=== PATIENT | male | born 1990 | race African-American/Black ===

== ENCOUNTER → 2017-12-04 11:57 | Emergency (ER) | payer BC, MEDICAID ==
[~2017-12-04 11:57] MED LIST: Albuterol 2.5 MG/3 ML NEB.SOL* (0.083%) INH ONE
--- NOTE | 2017-12-04 12:06 | UC ---
Respiratory Complaint HPI - HPI Summary HPI Summary: 26 y/o male presents to the urgent care c/o cold symptoms, chest congestion w/ productive cough, CARROLL, nasal congestion w/ yellowish nasal discharge, sore throat since last 11/30/2017. Pt states chill w/ subjective low grade fever at night time. Pt has been taking Mucinex PO and Tylenol sinus OTC to alleviate symptoms. CARROLL is 4/10. Pt denies SOB, wheezing, chest pain, abdominal pain, N/V/D. - History of Current Complaint Stated Complaint: HEAD COLD, CONGESTED Time Seen by Provider: 12/04/17 12:03 Hx Obtained From: Patient Onset/Duration: Gradual Onset Timing: Constant Severity Initially: Mild Severity Currently: Moderate Pain Intensity: 4 - Headache Pain Scale Used: 0-10 Numeric Character: Cough: Productive, Sputum Description: - yeelowish Aggravating Factors: Recumbent Position Alleviating Factors: OTC Meds Associated Signs And Symptoms: Positive: Chills, Nasal Congestion, Sinus Discomfort - Risk Factors Pulmonary Embolism Risk Factors: Negative Cardiac Risk Factors: Negative Pseudomonas Risk Factors: Negative Tuberculosis Risk Factors: Negative - Allergies/Home Medications Allergies/Adverse Reactions: Allergies Allergy/AdvReac Type Severity Reaction Status Date / Time anesthesia Allergy Unknown Hives Uncoded 12/04/17 12:10 PMH/Surg Hx/FS Hx/Imm Hx Previously Healthy: Yes Respiratory History: Asthma - Family History Known Family History: Positive: Diabetes Family History: Lung cancer - Social History Occupation: Employed Full-time Lives: With Family Review of Systems Constitutional: Fever - low grade subjective at home, Chills, Other - body aches Skin: Negative Eyes: Negative ENT: Sore Throat, Nasal Discharge, Sinus Congestion, Sinus Pain/Tenderness Respiratory: Cough Cardiovascular: Negative Gastrointestinal: Negative Genitourinary: Negative Motor: Negative Neurovascular: Negative Musculoskeletal: Negative Neurological: Headache Psychological: Negative Is Patient Immunocompromised?: No All Other Systems Reviewed And Are Negative: Yes Physical Exam - Summary Physical Exam Summary: Vital Signs Reviewed: Yes General: well developed, well nourished male sitting in the examining table w/o any apparent distress Eyes: Positive: Conjunctiva Clear - PERRLA, EOMI, fundi grossly normal ENT: Positive: Normal ENT inspection, Hearing grossly normal, Pharynx mild erythema, no exudate, Nasal congestion - edematous and erythematous nasal mucosa , Nasal drainage - yellowish drainage, TMs normal. Negative: Tonsillar swelling , Tonsillar exudate Neck: Positive: Supple, Nontender, No Lymphadenopathy Respiratory: no orthopnea or dyspnea. Able to speak in full sentences, no retractions or accessory muscle use, no tripod position, stridor, or head bobbing. Positive breast sounds bilaterraly,Scattered rhonchi posterior lungs, no crackles or wheezing, no rales. Cardiovascular: Positive: RRR, No Murmur, Pulses Normal, Brisk Capillary Refill Abdomen Description: Positive: Nontender, No Organomegaly, Soft. Negative: CVA Tenderness (R), CVA Tenderness (L) Bowel Sounds: Positive: Present Musculoskeletal Exam: Normal Musculoskeletal: Positive: Strength Intact, ROM Intact, No Edema Neurological Exam: Normal Psychological Exam: Normal Skin Exam: Normal Triage Information Reviewed: Yes Respiratory Course/Dx - Course Course Of Treatment: 26 y/o male presents to the urgent care c/o cold symptoms, chest congestion w/ productive cough, CARROLL, nasal congestion w/ yellowish nasal discharge, sore throat since last 11/30/2017. Pt states chill w/ subjective low grade fever at night time. Pt has been taking Mucinex Po and tylenol sinus OTC to alleviate symptoms. CARROLL is 4/10. Pt denies SOB, wheezing, chest pain, abdominal pain, N/V/D. Hx obtained. Pt w/ B/L posterior lungs w/ scattered rhonchi on examination. O2Sat: 100%. Pt w/ PMHX of asthma that has been controlled for many years. Rapid influenza A&B ordered:negative. Chest X- ray ordered to r/o pneumonia. Impression: No active cardiopulmonary disease observed. Pt given an albuterol treatment at the clinic. Pt tolerated well treatment and chest congestion improved and Pt fell better. Pt Rx Z-vasu, Prednisone PO taper dose, Albuterol inhaler to alleviate symptoms. Pt was instructed to return to the [facility] care or his PCP if not improvement of symptoms. All questions were answered at patient satisfaction. Pt's BP is elevated today advised to decrease salt in diet, monitor BP and f/u with PCP for further management. There were no further complaints or concerns. Pt left the clinic hemodynamically stable, A&OX3 - Differential Dx/Diagnosis Differential Diagnosis/HQI/PQRI: Asthma, Bronchitis, Influenza, Lower Resp Infection, Sinusitis, Other - URI, pharyngitis, pneumonia Provider Diagnoses: 1- Acute asthma exacerbation due to bronchitis. 2-Elevated BP w/o HX of HTN Discharge - Sign-Out/Discharge Documenting (check all that apply): Discharge - Discharge Plan Condition: Stable Disposition: HOME Prescriptions: Albuterol HFA INHALER* [Ventolin HFA Inhaler*] 1 - 2 puff INH Q4H PRN #1 mdi PRN Reason: bronchospam Azithromyxin VASU (NF) [Z-Vasu (Zithromax) 250 mg tabs #6] 2 tab PO .TODAY, THEN 1 DAILY #6 tab predniSONE TAB* [Deltasone TAB*] 20 mg PO DAILY #11 tab Patient Education Materials: Asthma (ED), Acute Bronchitis (ED), Low-Sodium Diet (ED) Forms: *Work Release Referrals: Osito Talbot MD [Medical Doctor] - 3 Days Additional Instructions: 1-Please take full course of antibiotic to avoid resistance. Take the Prednisone PO as directed 2- Use the albuterol inhaler to alleviate cough. Increase fluid intake, rest and eat well. 3- If symptoms do not improve or worsen or your develop SOB with fever and severe wheezing please go immediately to the ER further evaluation and treatment. 4- F/u with your PCP in 3 days for further management on your Asthma 5-Your BP is elevated today. please decrease salt in your diet, monitor BP and if it continues to be elevated please f/u with your PCP for further management - Billing Disposition and Condition Condition: STABLE Disposition: HOME
[2017-12-04 12:18] VITALS: BP 140/86
--- NOTE | 2017-12-04 13:32 | RAD ---
INDICATION: Productive cough and fever. COMPARISON: There are no prior studies available for comparison. TECHNIQUE: Dual-energy PA and lateral views of the chest were obtained. FINDINGS: The heart is within normal limits in size. Mediastinal and hilar contours appear within normal limits. The lungs are clear. No pleural effusion is present. IMPRESSION: NO EVIDENCE FOR ACTIVE CARDIOPULMONARY DISEASE.
== END | disposition home or self-care (01) ==
LOC: EDBD 11:57 → UCEAST 11:57
DX: J45.901 Unspecified asthma with (acute) exacerbation (principal); R03.0 Elevated blood-pressure reading, without diagnosis of hypertension; Z88.4 Allergy status to anesthetic agent
CPT/HCPCS: 71046; 87502; 99202; G0463

== ENCOUNTER 2018-01-01 07:40 | Emergency (ER) | payer BC ==
[2018-01-01 07:56] VITALS: BP 130/58
[2018-01-01] MEDS ORDERED: Ketorolac INJ* 60 MG/2 ML VIAL IM ONE (08:03)
--- NOTE | 2018-01-03 20:56 | UC ---
Shahriar Garcia Angela, scribed for Carlos Wharton MD on 01/01/18 at 0800 . Neck Pain HPI - HPI Summary HPI Summary: This pt is a 27 y/o male presenting to [facility] c/o right sided neck pain x3 days. Pt reports his pain began after he slept wrong on his right shoulder 3 days ago. He notes that since then he has been having pain on the right side of his neck. He denies any other complaints. Denies fever, chills, headache, weakness, numbness. Denies any PMHx. - History of Current Complaint Chief Complaint: UCUpperExtremity Stated Complaint: NECK PAIN Time Seen by Provider: 01/01/18 07:47 Hx Obtained From: Patient Onset/Duration Of Injury/Symptoms: Days Mechanism Of Injury: No Known Trauma Onset/Duration: Lasting Days, Still Present Severity: Moderate Pain Intensity: 4 Pain Scale Used: 0-10 Numeric Location: Discrete At: - right side of neck Aggravating Factors: Nothing Alleviating Factors: Nothing Associated Signs & Symptoms: Negative: Swelling, Redness, Bruising, Fever, Nuchal Rigity, Weakness, Headache, Paresthesia - Allergies/Home Medications Allergies/Adverse Reactions: Allergies Allergy/AdvReac Type Severity Reaction Status Date / Time anesthesia Allergy Unknown Hives Uncoded 01/01/18 07:56 PMH/Surg Hx/FS Hx/Imm Hx Other Endocrine History: DENIES: diabetes Other Cardiovascular History: DENIES: HTN Respiratory History: Asthma - Surgical History Surgical History: Yes Surgery Procedure, Year, and Place: Bariatric surgery 2008 - Family History Known Family History: Positive: Diabetes Family History: Lung cancer - Social History Alcohol Use: Occasionally Substance Use Type: Marijuana Substance Use Comment - Amount & Last Used: weekly Smoking Status (MU): Never Smoked Tobacco Review Of Systems Constitutional: Positive: Negative Skin: Positive: Negative Eyes: Positive: Negative ENT: Positive: Negative Respiratory: Positive: Negative Cardiovascular: Positive: Negative Gastrointestinal: Positive: Negative Genitourinary: Positive: Negative Musculoskeletal: Positive: Other: - right sided neck pain Neurological: Positive: Negative Psychological: Positive: Negative All Other Systems Reviewed And Are Negative: Yes Physical Exam - Summary Physical Exam Summary: VITAL SIGNS: Reviewed. GENERAL: Patient is a well-developed and nourished male who is lying comfortable in the stretcher. Patient is not in any acute respiratory distress. HEAD AND FACE: Normocephalic EYES: PERRLA, EOMI x 2. EARS: Hearing grossly intact. MOUTH: Oropharynx within normal limits. NECK: Supple, trachea is midline, no adenopathy, no JVD, no carotid bruit. Tenderness in the right sternocleidomastoid muscle. No vertebral tenderness. CHEST: Symmetric, no tenderness at palpation LUNGS: Clear to auscultation bilaterally. No wheezing or crackles. CVS: Regular rate and rhythm, S1 and S2 present, no murmurs or gallops appreciated. ABDOMEN: Soft, non-tender. Bowel sounds are normal. No abdominal abnormal pulsations. EXTREMITIES: Full ROM in all major joints, no edema, no cyanosis or clubbing. NEURO: Alert and oriented x 3. No acute neurological deficits. Speech is normal and follows commands. SKIN: Dry and warm Triage Information Reviewed: Yes Vital Signs: Initial Vital Signs Temp 98.1 F 01/01/18 07:51 Pulse 80 01/01/18 07:51 Resp 18 01/01/18 07:51 BP 130/58 01/01/18 07:51 Pulse Ox 100 01/01/18 07:51 Vital Signs Reviewed: Yes Neck Pain Course/Dx - Course Course Of Treatment: This pt is a 27 y/o male presenting to [facility] c/o right sided neck pain x3 days. Pt reports his pain began after he slept wrong on his right shoulder 3 days ago. He notes that since then he has been having pain on the right side of his neck. He denies any other complaints. Denies fever, chills. Denies any PMHx. Pt will be given a Toradol injection. I believe the pt has torticollis. Therefore he will be discharged home with follow up from his PCP. He will be given prescriptions for Motrin and Robaxin. Pt was instructed to return to the urgent care or go to ER immediately if any of the symptoms return or worsens. Plan of care was discussed with the patient and pt understands and agrees. All questions were answered to patient satisfaction. There were no further complaints or concerns. Pt is hemodynamically stable, alert and oriented x3. The patient was found to have increased blood pressure in UC. The patient will follow up with PCP for better control of BP. - Differential Dx/Diagnosis Provider Diagnoses: Torticollis Discharge - Sign-Out/Discharge Documenting (check all that apply): Discharge/Admit/Transfer - Discharge - Discharge Plan Condition: Stable Disposition: HOME Prescriptions: Ibuprofen TAB* [Motrin TAB* 600 MG] 600 mg PO Q8H PRN #30 tab PRN Reason: Pain Methocarbamol TAB* [Robaxin 500 MG TAB*] 500 mg PO TID PRN #9 tab PRN Reason: Pain Patient Education Materials: Spasmodic Torticollis (ED) Forms: *Work Release Referrals: Carlos Trotter MD [Primary Care Provider] - Additional Instructions: FOLLOW UP WITH YOUR PRIMARY CARE PROVIDER WITHIN ONE WEEK FOR HIGH BLOOD PRESSURE NOTED TODAY. RETURN TO URGENT CARE OR THE ED FOR ANY WORSENING OR NEW SYMPTOMS. The documentation as recorded by the Shahriar oviedo Angela accurately reflects the service I personally performed and the decisions made by , Carlos Wharton MD.
== END 2018-01-01 08:21 | disposition home or self-care (01) ==
LOC: UCEAST 07:40
DX: M43.6 Torticollis (principal); Z88.4 Allergy status to anesthetic agent
CPT/HCPCS: 96372; 99212; G0463; J1885

== ENCOUNTER 2019-06-12 15:18 | Emergency (ER) | payer BC ==
--- NOTE | 2019-06-12 16:47 | ED ---
Throat Pain/Nasal Congestion - HPI Summary HPI Summary: Pt is a 29 y/o M presenting to the ED with a chief complaint of ENT issues. He states he has had R ear fullness over the past 3-4 weeks that has worsened over the past few days. Hx perforated TM in past. He has had an accompanying headache that originates in his R sikh and radiates toward the occipital portion of his head. Over the last few days, he reports yellow/green discharge from his R ear as well as from his nose, with some blood. He also notes paresthesia on the palmar aspect of his L digits, and occasionally his L leg or R leg. No weakness. No neck or back pain. He denies fever. - History of Current Complaint Chief Complaint: EDNeurologicalDeficit Time Seen by Provider: 06/12/19 16:08 Hx Obtained From: Patient Onset/Duration: Gradual Onset, Lasting Weeks, Still Present Severity: Moderate Associated Signs And Symptoms: Positive: Nasal Discharge Cough: None - Allergies/Home Medications Allergies/Adverse Reactions: Allergies Allergy/AdvReac Type Severity Reaction Status Date / Time anesthesia Allergy Unknown Hives Uncoded 06/12/19 15:55 PMH/Surg Hx/FS Hx/Imm Hx Previously Healthy: Yes Endocrine/Hematology History: Denies: Hx Diabetes, Hx Thyroid Disease Cardiovascular History: Denies: Hx Hypertension Respiratory History: Reports: Hx Asthma Denies: Hx Chronic Obstructive Pulmonary Disease (COPD) GI History: Denies: Hx Ulcer - Surgical History Surgery Procedure, Year, and Place: Bariatric surgery 2008 Infectious Disease History: No Infectious Disease History: Denies: Hx Hepatitis, Hx Human Immunodeficiency Virus (HIV), Traveled Outside the [place] in Last 30 Days - Family History Known Family History: Positive: Diabetes Family History: Lung cancer - Social History Alcohol Use: Occasionally Hx Substance Use: Yes Substance Use Type: Reports: Marijuana Substance Use Comment - Amount & Last Used: weekly Hx Tobacco Use: No Smoking Status (MU): Never Smoked Tobacco Review of Systems Negative: Fever Positive: Ear Ache, Nasal Discharge Positive: Headache, Paresthesia All Other Systems Reviewed And Are Negative: Yes Physical Exam - Summary Physical Exam Summary: Constitutional: Well-developed, Well-nourished, Alert. (-) Distressed Skin: Warm, Dry HENT: Normocephalic; Atraumatic. Perforated TM of R ear Eyes: Conjunctiva normal Neck: Musculoskeletal ROM normal neck. (-) JVD, (-) Nuchal rigidity Cardio: Rhythm regular, rate normal, Heart sounds normal; Intact distal pulses; Radial pulses are 2+ and symmetric. (-) Murmur Pulmonary/Chest wall: Effort normal. (-) Respiratory distress, (-) Wheezes, (-) Rales Abd: Soft. (-) Tenderness, (-) Distension, (-) Guarding, (-) Rebound Musculoskeletal: (-) Edema Lymph: (-) Cervical adenopathy Neuro: Alert, PERRL, Oriented x3, Strength normal, Cranial nerves II-XII are grossly intact. Strength 5/5 BUE and BLE, (-) Nystagmus, ambulates w steady gait. Decreased sensation to palmar aspect of 3rd and 4th digits on L hand as well as posterior L calf. Psych: Mood and affect Normal Triage Information Reviewed: Yes Vital Signs On Initial Exam: Initial Vitals Temp Pulse Resp BP Pulse Ox 97.8 F 75 16 142/75 100 06/12/19 15:20 06/12/19 15:20 06/12/19 15:20 06/12/19 15:20 06/12/19 15:20 Vital Signs Reviewed: Yes - Janette Coma Scale Best Eye Response: 4 - Spontaneous Best Motor Response: 6 - Obeys Commands Best Verbal Response: 5 - Oriented Coma Scale Total: 15 Procedures - Sedation Patient Received Moderate/Deep Sedation with Procedure: No Diagnostics - Vital Signs Vital Signs Temp Pulse Resp BP Pulse Ox 06/12/19 15:20 97.8 F 75 16 142/75 100 - Laboratory Lab Statement: Any lab studies that have been ordered have been reviewed, and results considered in the medical decision making process. - CT Brain CT CT Interpretation Completed By: Radiologist Summary of CT Findings: Normal CT of the brain. ED physician has reviewed this report. Re-Evaluation - Re-Evaluation First Eval Re-Evaluation Time: 18:00 Change: Improved - Patient feels better, head CT negative. Patient will follow up when PRN with neurology. EENT Course/Dx - Course Course Of Treatment: 29-year-old male history of recurrent otitis media presents with right ear pain and drainage, headaches, and procedures. Physical exam of the right TM perforation, will give amoxicillin. Regarding headache, patient denies history of present headaches, has had a persistent headache for 2 weeks possibly associated paresthesias. Did have congestion but no fevers or nuchal rigidity. We'll check a head CT. Patient can have further workup for paresthesias with neurology. - Diagnoses Provider Diagnoses: Headache, Perforated tympanic membrane, Paresthesia Discharge ED - Sign-Out/Discharge Documenting (check all that apply): Patient Departure - Discharge Plan Condition: Stable Disposition: HOME Prescriptions: Amoxicillin 875 mg PO BID 7 Days #14 tablet Patient Education Materials: Ear Infection (ED), Acute Headache (ED), Paresthesia (ED), General Headache (ED) Referrals: Carlos Trotter MD [Primary Care Provider] - Mainor Wiley MD [Medical Doctor] - Additional Instructions: You were seen in the emergency department for ear pain, headache and numbness and tingling. Your head CT is normal. Please take amoxicillin and antibiotic twice a day for 7 days. Please follow up with neurology regarding your paresthesias. If any studies were not completed at the time of discharge you will be called with the relevant results. Please follow up with your primary care doctor in next 2-3 days and return to emergency department for worsening or concerning symptoms. It was a pleasure taking care of you today. - Billing Disposition and Condition Condition: STABLE Disposition: Home - Attestation Statements Document Initiated by Cheyanne: Yes Documenting Scribe: Cristal Murphy Provider For Whom Cheyanne is Documenting (Include Credential): Leda Srivastava MD. Scribe Attestation: Cristal Garcia, scribed for Leda Srivastava MD. on 06/12/19 at 1811. Scribe Documentation Reviewed: Yes Provider Attestation: The documentation as recorded by the amintaibeCristal accurately reflects the service I personally performed and the decisions made by , Leda Srivastava MD. Status of Scribe Document: Viewed
[2019-06-12] MEDS: NS 0.9% 1000 ML** 1,000 ML IV ONE (17:05)
[2019-06-12] MEDS: Amoxicillin PO (*) 500 MG CAP PO ONE (17:12)
[2019-06-12] MEDS: Metoclopramide IV* 5 MG/ML 2 ML VIAL IV SLOW PU ONE (17:12)
[2019-06-12] MEDS: Ketorolac INJ* 30 MG/ML 1 ML VIAL IV ONE (17:12)
[2019-06-12 18:20] VITALS: BP 132/78
== END 2019-06-12 18:13 | disposition home or self-care (01) ==
LOC: ED 15:18
DX: H72.91 Unspecified perforation of tympanic membrane, right ear (principal); R51 Headache; R20.2 Paresthesia of skin; J45.909 Unspecified asthma, uncomplicated; Z88.4 Allergy status to anesthetic agent
CPT/HCPCS: 70450; 96361; 96374; 96375; 99282; A9270-GY; J1885; J2765

== ENCOUNTER 2024-04-09 09:28 | Observation (INO) ==
[2024-04-09 10:08] LABS: Hematocrit 15.5 % (38-53); Hemoglobin 5.6 g/dL (13.2-16.3); Mean Corpuscular Hgb Conc 36.3 g/dL (31-36); Mean Corpuscular Volume 79.7 fL (80-97); Red Blood Count 1.95 10^6/uL (4.06-5.63); Red Cell Distribution Width 12.8 % (12-17); White Blood Count 3.6 10^3/uL (3.6-10.2)
[2024-04-09 10:22] LABS: High Sens Troponin Baseline 4 pg/mL (<20); INR 1.1 (0.83-1.13)
[2024-04-09 10:30] LABS: ABS Lymphocytes 0.9 10^3/uL (1.0-4.8); ABS Monocytes 0.3 10^3/uL (0.0-1.1); ABS Neutrophils 2.3 10^3/uL (1.5-7.6); ABS Nucleated RBC 0.01 10^3/ul; ALT 64 U/L (7-52); AST 34 U/L (13-39); Albumin 3.9 g/dL (3.2-5.2); Albumin/Globulin Ratio 1.5 (1-3); Alkaline Phosphatase 57 U/L (35-149); Anion Gap 7 mmol/L (2-16); Blood Urea Nitrogen 15 mg/dL (6-24); CO2 Carbon Dioxide 28 mmol/L (22-32); Chloride 103 mmol/L (101-111); Creatinine, Serum 1.15 mg/dL (0.67-1.17); Eosinophil % 0.6 %; Globulin 2.6 g/dL (2-4); Glucose 121 mg/dL (70-100); Mean Platelet Volume 7.6 fL (7.5-11.2); Nucleated Red Blood Cells % 0.4 %/100WBC (0.0-0.8); Platelet Count 43 10^3/uL (150-450); Sodium 138 mmol/L (135-145); Total Bilirubin 0.7 mg/dL (0.2-1.0); Total Protein 6.5 g/dL (6.4-8.9); eGFR CKD-EPI 85.6 (>60)
[2024-04-09 11:45] LABS: % Iron Saturation 81 % (15-55); .Transferrin 188 mg/dL (203-362); Iron 214 ug/dL (50-212); Total Iron Binding Capacity 263 mcg/dL (250-450); Unsaturated Iron Binding 49 ug/dL
[2024-04-09 12:03] LABS: Ferritin 359.6 ng/mL (24-336)
[2024-04-09 12:09] LABS: Folate > 20.00 ng/mL (5.90-24.80)
[2024-04-09 12:10] LABS: Vitamin B12 461 pg/mL (180-914)
[2024-04-09 12:40] LABS: High Sensitivity Troponin 1 Hr 3 pg/mL (<20)
[2024-04-09] MEDS ORDERED: Enoxaparin 40 MG/0.4 ML SYR SUBCUT SCH (21:00)
[2024-04-10 06:33] LABS: Calcium 8.7 mg/dL (8.6-10.3); Creatinine, Serum 1.13 mg/dL (0.67-1.17); Potassium 4.2 mmol/L (3.5-5.0); eGFR CKD-EPI 87.5 (>60)
[2024-04-10 07:43] LABS: ABS Lymphocytes 1.4 10^3/uL (1.0-4.8); ABS Monocytes 0.3 10^3/uL (0.0-1.1); ABS Neutrophils 2.2 10^3/uL (1.5-7.6); ABS Nucleated RBC 0.01 10^3/ul; Eosinophil % 0.6 %; Hematocrit 19.5 % (38-53); Hemoglobin 7.1 g/dL (13.2-16.3); Lymphocyte % 35.6 %; Mean Corpuscular Hemoglobin 29.3 pg (27-33); Mean Corpuscular Hgb Conc 36.3 g/dL (31-36); Mean Corpuscular Volume 80.7 fL (80-97); Mean Platelet Volume 9.2 fL (7.5-11.2); Nucleated Red Blood Cells % 0.2 %/100WBC (0.0-0.8); Platelet Count 45 10^3/uL (150-450); Red Blood Count 2.42 10^6/uL (4.06-5.63); Red Cell Distribution Width 13.3 % (12-17); White Blood Count 4.1 10^3/uL (3.6-10.2)
[2024-04-10 12:28] VITALS: BP 119/69
[2024-04-10 14:14] LABS: Cytomegalovirus IgG Antibody Negative (Negative)
== END 2024-04-10 13:10 | disposition home or self-care (01) ==
LOC: ED 09:28 → EDHOLD 09:28 → MEDTELE 17:27
PROVIDERS: ADMIT Student in an Organized Health Care Education/Training Program; ATTEND Student in an Organized Health Care Education/Training Program